=== PATIENT | male | born 1960 | race Caucasian/White ===

== ENCOUNTER → 2016-10-24 | Outpatient (CLI) | payer BC, OTHER ==
--- NOTE | 2016-10-25 19:31 | PCVCIMAG ---
APPROVED REPORT Exam: Stress Echocardiogram Indication: CAD, ABN EKG Patient Location: Echo lab Stress Nurse: Maryann Kate RN Status: routine HR: 54 bpm Rhythm: Sinus Bradycardia with first degree AV block Medical History Medications: No cardiac medications Cardiac Risk Factors: Hyperlipidemia,age,male Pretest Chest Pain Characteristics: No chest pain Exercise History: Physically active Procedure The patient underwent an Exercise Stress Test using the Florencio Protocol. Blood pressure, heart rate, and EKG were monitored. An Echocardiogram was performed by sales technician home theater in four stages in quad fashion. At peak stress, four selected images were obtained and placed side by side with resting images for comparison. Stress Test Details Stress Test: Exercise stress testing was performed using a Florencio protocol. HR Resting HR: 54 bpmMax Heart Rate (APMHR): 162 bpm Max HR Achieved: 151 bpmTarget HR (85% APMHR): 137 bpm % of APMHR: 93 Recovery HR: 86 bpm HR response to stress: Normal HR response to stress BP Resting BP: 126/88 mmHg Max BP: 168/78 mmHg Recovery BP: 150/62 mmHg ECG Resting ECG: Sinus Bradycardia with first degree AV block Stress ECst degree AV block ST Change: Normal Arrhythmia: Frequent PVCs with occasional couplets Recovery ECst degree AV block Recovery ST Change: Normal Recovery Arrhythmia: None Clinical Reason for Termination: Maximal effort Stress Symptoms: none Exercise duration: 15 min sec Highest Stage Achieved: Stage 5: 5.0 mph at 18% grade. Exercise capacity: 26.9 METs Overall Exercise Capacity for Age: Excellent Scale: Active Angina Score: None Stress ECG Conclusion The patient exercised according to the FLORENCIO Protocol for 15 min, achieving a work level of Max. METS:26.9 . The resting heart rate of 54 bpm nishi to a maximal heart rate of 151 bpm. This value represents 93% of the maximal, age-predicted heart rate. The resting blood pressure of 126/84 mmHg, nishi to a maximum blood pressure of 198/78 mmHg. The exercise test was stopped due to fatigue , target heart rate achieved. Pre-Stress Echo The resting Echocardiogram showed normal left ventricular contractility with an estimated Ejection Fraction of about 55-60%. Normal wall motion in all segments on baseline images. Post-Stress Echo The stress Echocardiogram showed normal left ventricular contractility with an estimated Ejection Fraction of about 65-70%. Normal augmentation of wall motion in all segments on post stress images. Conclusion Clinical Response: Non-ischemic Exercise Capacity: Superior Stress ECG Response: Non-ischemic Stress Echo Images: Non-ischemic Normal stress echocardiogram with maximal exercise stress. No clinical, EKG or echocardiographic evidence for ischemia. <Conclusion> Normal stress echocardiogram with maximal exercise stress. No clinical, EKG or echocardiographic evidence for ischemia.
== END | disposition home or self-care (01) ==
LOC: PCVCIMAG 11:00
PROVIDERS: ATTEND Internal Medicine Cardiovascular Disease
DX: I25.10 Atherosclerotic heart disease of native coronary artery without angina pectoris (principal); I44.0 Atrioventricular block, first degree; R94.31 Abnormal electrocardiogram [ECG] [EKG]; E78.5 Hyperlipidemia, unspecified; I49.3 Ventricular premature depolarization; E78.00 Pure hypercholesterolemia, unspecified
CPT/HCPCS: 93325; 93351